=== PATIENT | female | born 1945 | race Hispanic/Latino ===

== ENCOUNTER 2018-09-06 13:32 | Emergency (ER) | payer MEDICARE, BC ==
--- NOTE | 2018-09-06 13:59 | ED PDOC ---
HPI: General Adult Time Seen by Provider: 09/06/18 13:57 Chief Complaint (Nursing): Eye Problem Chief Complaint (Provider): right eye hazy/dizzy History Per: Patient (72 y/o female h/o catarracts/mild glaucoma here for evaluation of right eye haziness noted since yesterday. STates haziness involves entire eye. No pain noted. No discharge. Also notes difficulty with b alance ongoing x 3 weeks.) Past Medical History Reviewed: Historical Data, Nursing Documentation, Vital Signs Vital Signs: Last Vital Signs Temp 97.4 F L 09/06/18 13:39 Pulse 61 09/06/18 13:39 Resp 19 09/06/18 13:39 BP 147/80 09/06/18 13:39 Pulse Ox 100 09/06/18 13:39 - Family History Family History: States: No Known Family Hx - Home Medications Home Medications: Ambulatory Orders Medication Instructions Recorded Cephalexin [Keflex] 500 mg PO TID #15 capsule 09/06/18 - Allergies Allergies/Adverse Reactions: Allergies Allergy/AdvReac Type Severity Reaction Status Date / Time No Known Allergies Allergy Verified 09/06/18 13:37 Review of Systems ROS Statement: Except As Marked, All Systems Reviewed And Found Negative Physical Exam - Reviewed Nursing Documentation Reviewed: Yes Vital Signs Reviewed: Yes (right eye 20/70;left 20/50; bilateal 20/40) - Physical Exam Appears: Positive for: Well, Non-toxic, No Acute Distress Head Exam: Positive for: ATRAUMATIC, NORMAL INSPECTION, NORMOCEPHALIC Skin: Positive for: Normal Color, Warm, DRY Eye Exam: Positive for: Normal appearance, EOMI, PERRL, Other (no fluorescein uptake. tonopen right . left ) ENT: Positive for: Normal ENT Inspection Neck: Positive for: Normal, Painless ROM Cardiovascular/Chest: Positive for: Regular Rate, Rhythm Respiratory: Positive for: CNT, Normal Breath Sounds Gastrointestinal/Abdominal: Positive for: Normal Exam, Soft Back: Positive for: Normal Inspection Extremity: Positive for: Normal ROM Neurological/Psych: Positive for: Awake, Alert, Normal Tone - Laboratory Results Result Diagrams: 09/06/18 14:15 09/06/18 14:15 - ECG O2 Sat by Pulse Oximetry: 100 Disposition - Clinical Impression Clinical Impression: UTI (urinary tract infection), Hyperglycemia, Visual disturbance of one eye - Patient ED Disposition Is Patient to be Admitted: No - Disposition Referrals: Dontae Jarrett MD [Staff Provider] - Disposition: Routine/Home Disposition Time: 16:24 Condition: STABLE Prescriptions: Cephalexin [Keflex] 500 mg PO TID #15 capsule Instructions: Urinary Tract Infections in Adults, Diabetes and Diet
[2018-09-06] MEDS ORDERED: Fluorescein 1 mg Ophthalmic Strip ONE (14:19)
[2018-09-06 14:32] LABS: BASO # 0.1 K/uL (0.0-0.2); EOS # 0.1 K/uL (0.0-0.7); EOS % 1.3 % (0.0-4.0); HEMOGLOBIN 14.1 g/dL (12.0-16.0); LYMPH # 2.2 K/uL (1.0-4.3); LYMPH % 29.6 % (20.0-40.0); MEAN CELL VOLUME 95.8 fl (81.0-99.0); MEAN CORPUSCULAR HEMOGLOBIN 31.4 pg (27.0-31.0); MEAN CORPUSCULAR HGB CONC 32.8 g/dL (33.0-37.0); MEAN PLATELET VOLUME 9.8 fl (7.2-11.7); MONO # 0.6 K/uL (0.0-0.8); MONO % 8.5 % (0.0-10.0); NEUT # 4.4 K/uL (1.8-7.0); NEUT % 59.6 % (50.0-75.0); NRBC % 0.1 % (0.0-0.0); RBC 4.5 Mil/uL (3.80-5.20); RED CELL DISTRIBUTION WIDTH 14.7 % (11.5-14.5); WHITE BLOOD COUNT 7.4 K/uL (4.8-10.8)
[2018-09-06 14:38] LABS: ALB/GLOB RATIO 1.3 (1.0-2.1); ALBUMIN 3.8 g/dL (3.5-5.0); ALT/SGPT 37 U/L (9-52); AST/SGOT 22 U/L (14-36); BLOOD UREA NITROGEN 16 mg/dl (7-17); CALCIUM 9.7 mg/dL (8.4-10.2); GFR NON-AFRICAN AMERICAN > 60
[2018-09-06] MEDS ORDERED: Sodium Chloride 0.9% 1,000 ML IV STA (14:39)
[2018-09-06 15:21] LABS: SQUAMOUS EPITHIAL 29 /hpf (0-5); URINE BACTERIA RARE (<OCC); URINE BILIRUBIN SMALL (NEGATIVE); URINE BLOOD NEGATIVE (NEGATIVE); URINE CLARITY CLOUDY (Clear); URINE COLOR AMBER (YELLOW); URINE GLUCOSE (UA) >=500 mg/dL (NEGATIVE); URINE LEUKOCYTE ESTERASE MOD Leu/uL (Negative); URINE PROTEIN 100 mg/dL (NEGATIVE)
--- NOTE | 2018-09-06 15:38 | CT ---
Date of service: 09/06/2018 PROCEDURE: CT HEAD WITHOUT CONTRAST. HISTORY: dizziness/right eye hazy/ r/o infarct COMPARISON: None available. TECHNIQUE: Axial computed tomography images were obtained through the head/brain without intravenous contrast. Radiation dose: Total exam DLP = 0.0 mGy-cm. This CT exam was performed using one or more of the following dose reduction techniques: Automated exposure control, adjustment of the mA and/or kV according to patient size, and/or use of iterative reconstruction technique. FINDINGS: HEMORRHAGE: No intracranial hemorrhage. BRAIN: No mass effect or edema. No atrophy or chronic microvascular ischemic changes. VENTRICLES: Unremarkable. No hydrocephalus. CALVARIUM: Unremarkable. PARANASAL SINUSES: Unremarkable as visualized. No significant inflammatory changes. MASTOID AIR CELLS: Unremarkable as visualized. No inflammatory changes. OTHER FINDINGS: None. IMPRESSION: No acute hemorrhage.
[2018-09-06] MEDS ORDERED: Insulin Regular 100 units/ml IVP ONE (16:26)
[2018-09-06] MEDS ORDERED: Insulin Regular 100 units/ml ONE (16:35)
--- NOTE | 2018-09-06 16:43 | RAD ---
Date of service: 09/06/2018 HISTORY: routine COMPARISON: No prior. FINDINGS: LUNGS: No active pulmonary disease. PLEURA: No significant pleural effusion identified, no pneumothorax apparent. CARDIOVASCULAR: No aortic atherosclerotic calcification present. Normal cardiac size. No pulmonary vascular congestion. OSSEOUS STRUCTURES: No significant abnormalities. VISUALIZED UPPER ABDOMEN: Normal. OTHER FINDINGS: None. IMPRESSION: No active disease.
[2018-09-06 17:19] VITALS: BP 118/72; PULSE 56; RESP 16; TEMP 98.6; O2SAT 97
--- NOTE | 2018-09-06 19:55 | CARD ---
APPROVED REPORT Date of service: 09/06/2018 EKG Measurement Heart [id number] FL [id number] <Conclusion> Sinus bradycardia Septal infarct, age undetermined Abnormal ECG
== END 2018-09-06 17:53 | disposition home or self-care (01) ==
LOC: H.ER 13:32
DX: N39.0 Urinary tract infection, site not specified (principal); H40.9 Unspecified glaucoma; R73.9 Hyperglycemia, unspecified
CPT/HCPCS: 70450; 71045; 80053; 81003; 82948; 83735; 84484; 85025; 93005; 96361; 96374; 99285; J7030

== ENCOUNTER 2018-09-17 18:20 | Emergency (ER) | payer MEDICARE, BC ==
[2018-09-17 18:35] VITALS: O2SAT 95
[2018-09-17 20:36] LABS: BASO # 0.1 K/uL (0.0-0.2); BASO % 0.7 % (0.0-2.0); EOS # 0.1 K/uL (0.0-0.7); EOS % 1.1 % (0.0-4.0); HEMOGLOBIN 14.2 g/dL (12.0-16.0); LYMPH # 2.4 K/uL (1.0-4.3); LYMPH % 30.1 % (20.0-40.0); MEAN CELL VOLUME 95.2 fl (81.0-99.0); MEAN CORPUSCULAR HEMOGLOBIN 31.6 pg (27.0-31.0); MEAN CORPUSCULAR HGB CONC 33.1 g/dL (33.0-37.0); MONO # 0.7 K/uL (0.0-0.8); MONO % 8.7 % (0.0-10.0); NEUT # 4.8 K/uL (1.8-7.0); NEUT % 59.4 % (50.0-75.0); RBC 4.51 Mil/uL (3.80-5.20); RED CELL DISTRIBUTION WIDTH 14.5 % (11.5-14.5); WHITE BLOOD COUNT 8.1 K/uL (4.8-10.8)
--- NOTE | 2018-09-17 20:49 | ED PDOC ---
Syncope/Near Syncope/Dizziness Time Seen by Provider: 09/17/18 19:26 Chief Complaint (Nursing): Dizziness/Lightheaded Chief Complaint (Provider): Dizziness/Lightheaded History Per: Patient History/Exam Limitations: no limitations Onset/Duration Of Symptoms: Days (1X) Current Symptoms Are (Timing): Still Present Additional Complaint(s): 72 year old female with a past medical history of hypertension,rheumatoid arthritis and Osteoarthritis presents to the ED with Dizziness and some nausea. Patients symptoms started months ago, but have recently become more frequent. Patient reports dizziness started yesterday and worsened today prompting her ED visit. Patient was here 10 days ago for eye problem and followed up at [facility]. Patient is hyperglycemic with a blood sugar level is 400 mg/dL. Patient reports that she takes Metformin regularly. Patient denies headaches and belly pain. PMD: Dr. Savita Almanza, Past Medical History Reviewed: Historical Data, Nursing Documentation, Vital Signs Vital Signs: Last Vital Signs Temp 97.6 F 09/17/18 18:31 Pulse 75 09/17/18 18:31 Resp 16 09/17/18 18:31 BP 141/84 09/17/18 18:31 Pulse Ox 95 09/17/18 18:31 LILLIAM Report Viewed: Yes - Medical History PMH: HTN, Rheumatoid Arthritis - Surgical History Surgical History: Appendectomy Other surgeries: Colon resection - Family History Family History: States: No Known Family Hx - Immunization History Hx Tetanus Toxoid Vaccination: No Hx Influenza Vaccination: Yes Hx Pneumococcal Vaccination: No - Home Medications Home Medications: Ambulatory Orders Medication Instructions Recorded Cephalexin [Keflex] 500 mg PO TID #15 capsule 09/06/18 metFORMIN [glucOPHAGE] 500 mg PO DAILY #14 tab 09/06/18 - Allergies Allergies/Adverse Reactions: Allergies Allergy/AdvReac Type Severity Reaction Status Date / Time No Known Allergies Allergy Verified 09/17/18 18:31 Review of Systems ROS Statement: Except As Marked, All Systems Reviewed And Found Negative Gastrointestinal: Positive for: Nausea (a little bit ). Negative for: Abdominal Pain Neurological: Positive for: Dizziness. Negative for: Headache Physical Exam - Reviewed Nursing Documentation Reviewed: Yes Vital Signs Reviewed: Yes - Physical Exam Appears: Positive for: Well, Non-toxic, No Acute Distress Skin: Positive for: Normal Color, Warm, DRY Eye Exam: Positive for: EOMI, Normal appearance, PERRL ENT: Positive for: Normal ENT Inspection Neck: Positive for: Normal, Painless ROM Cardiovascular/Chest: Positive for: Regular Rate, Rhythm Respiratory: Positive for: CNT, Normal Breath Sounds Gastrointestinal/Abdominal: Positive for: Normal Exam, Soft Back: Positive for: Normal Inspection Extremity: Positive for: Normal ROM (upper and lower). Negative for: Deformity Neurological/Psych: Positive for: Awake, Alert, Normal Tone, Oriented (X3), Gait (steady). Negative for: Motor/Sensory Deficits, Facial Droop - Laboratory Results Result Diagrams: 09/17/18 19:32 09/17/18 19:32 - ECG O2 Sat by Pulse Oximetry: 95 (RA) Pulse Ox Interpretation: Normal - Progress Re-evaluation Time: 00:25 Condition: Re-examined, Improved Medical Decision Making Medical Decision Makin:26 Impression: 72 year old female patient with dizziness and lightheadedness Differential diagnosis includes but is not limited to: uncontrolled diabetes, rule out DKA- acute on chronic vertigo, peripheral vertigo. Less like central vertigo and less likely CVA. Plan: * Head CT w/o contrast * Electrocardiogram * Basic metabolic panel * Troponin 1 * ED urine dipstick (POC) * CBC with differential EKG FINDINGS: normal sinus rhythm, no st/t changes, rate of 62, normal QRS 17:[address] FINDINGS: BRAIN No acute intraparenchymal hemorrhage. No mass lesion. No CT evidence for acute territorial infarct. No midline shift or extra-axial collections. VENTRICLES: No hydrocephalus. ORBITS: The orbits are unremarkable. SINUSES AND MASTOIDS: The paranasal sinuses and mastoid air cells are clear. BONES: No fracture. SOFT TISSUES: Unremarkable. IMPRESSION: No acute intracranial abnormality. 00:20 Upon reevaluation, patient reports she is feeling better. Patient is ambulatory in the ER and is stable for discharge. Patient is agreeable with the discharge plan. Scribe Attestation: Documented by Scot Meng, acting as a scribe for Citlali Haskins MD Provider Scribe Attestation: All medical record entries made by the Scribe were at my direction and personally dictated by me. I have reviewed the chart and agree that the record accurately reflects my personal performance of the history, physical exam, medical decision making, and the department course for this patient. I have also personally directed, reviewed, and agree with the discharge instructions and disposition. Disposition - Clinical Impression Clinical Impression: Dizziness, Uncontrolled diabetes mellitus - Patient ED Disposition Is Patient to be Admitted: No Doctor Will See Patient In The: Office Counseled Patient/Family Regarding: Studies Performed, Diagnosis, Need For Followup - Disposition Referrals: Luciano Vee MD [Staff Provider] - Disposition: Routine/Home Disposition Time: 00:26 Condition: GOOD Additional Instructions: SILVESTRE COLLINS, thank you for letting us take care of you today. Your provider was Citlali Haskins MD and you were treated for DIZZINESS. The emergency medical care you received today was directed at your acute symptoms. If you were prescribed any medication, please fill it and take as directed. It may take several days for your symptoms to resolve. Return to the Emergency Department if your symptoms worsen, do not improve, or if you have any other problems. Please contact your doctor or call one of the physicians/clinics you have been referred to that are listed on the Patient Visit Information form that is included in your discharge packet. Bring any paperwork you were given at discharge with you along with any medications you are taking to your follow up visit. Our treatment cannot replace ongoing medical care by a primary care provider outside of the emergency department. Thank you for allowing the [facility] [facility] team to be part of your care today. Instructions: Dizziness, Nonvertigo, (DC), Diabetes in Older Adults
[2018-09-17 21:03] LABS: BLOOD UREA NITROGEN 26 mg/dl (7-17); CALCIUM 9.9 mg/dL (8.4-10.2); GFR NON-AFRICAN AMERICAN > 60
[2018-09-17] MEDS ORDERED: Sodium Chloride 0.9% 1,000 ML IV STA (21:50)
[2018-09-17] MEDS ORDERED: Insulin Regular 100 units/ml IV STA (21:50)
[2018-09-17] MEDS ORDERED: Insulin Regular 100 units/ml ONE (22:23)
[2018-09-18 03:31] VITALS: BP 134/62; PULSE 63; RESP 15; TEMP 97.9
--- NOTE | 2018-09-18 09:00 | CT ---
Date of service: 09/17/2018 PROCEDURE: CT HEAD WITHOUT CONTRAST. HISTORY: Dizziness COMPARISON: Comparison made with prior CT scan brain 09/06/2018 TECHNIQUE: Axial computed tomography images were obtained through the head/brain without intravenous contrast. Radiation dose: Total exam DLP = 840.74 mGy-cm. This CT exam was performed using one or more of the following dose reduction techniques: Automated exposure control, adjustment of the mA and/or kV according to patient size, and/or use of iterative reconstruction technique. FINDINGS: HEMORRHAGE: No intracranial hemorrhage.. BRAIN: Mild chronic periventricular white matter ischemic changes. Mild-moderate generalized volume loss VENTRICLES: Unremarkable. No hydrocephalus. CALVARIUM: Unremarkable. PARANASAL SINUSES: Small focal area polypoid like mucosal thickening left maxillary antrum MASTOID AIR CELLS: Unremarkable as visualized. No inflammatory changes. OTHER FINDINGS: None. IMPRESSION: No acute intracranial hemorrhage. Mild chronic periventricular white matter ischemic changes. Mild moderate generalized volume loss
--- NOTE | 2018-09-18 22:28 | CARD ---
APPROVED REPORT Date of service: 09/17/2018 EKG Measurement Heart [id number] <Conclusion> Sinus rhythm with premature atrial complexes Low voltage QRS Borderline ECG
== END 2018-09-18 00:45 | disposition home or self-care (01) ==
LOC: H.ER 18:20
DX: E11.65 Type 2 diabetes mellitus with hyperglycemia (principal); R42 Dizziness and giddiness; I10 Essential (primary) hypertension; Z79.84 Long term (current) use of oral hypoglycemic drugs
CPT/HCPCS: 70450; 80048; 82948; 84484; 85025; 93005; 99285; J7030